=== PATIENT | female | born 1955 | race African-American/Black ===

== ENCOUNTER 2024-06-06 16:25 | Emergency (ER) | payer OTHER, SELFPAY ==
--- NOTE | ~2024-06-06 | XR_ITS ---
CLINICAL HISTORY: sob, flu + Chest X-ray, 1 View COMPARISON: None FINDINGS: No consolidation. No pleural effusion. No pneumothorax. No cardiomegaly. No acute fracture. IMPRESSION: No acute findings. This document has been electronically signed by: Karel Riggs MD on 06/06/2024 22:10:20
--- NOTE | ~2024-06-06 | CT_ITS ---
CLINICAL HISTORY: diffuse abd pain, worse RUQ, hx cholecystectomy CT Abdomen and Pelvis WO Contrast COMPARISON: None FINDINGS: Bilateral breast implants in place. Patchy infiltrates in the left lower lobe and the lingula. Diffusely hypodense liver consistent with hepatic steatosis. Normal spleen. Normal kidneys. Normal adrenal glands. Normal pancreas. No visible cholelithiasis. No biliary dilation. Air-fluid levels in nondistended small bowel. No mucosal thickening. No evidence of obstruction. Normal appendix. Mild diffuse bladder wall thickening. Status post hysterectomy. No ascites. No pneumoperitoneum. No lymphadenopathy. No acute fracture. Degenerative changes in the spine. No abdominal aortic aneurysm. IMPRESSION: Air-fluid levels in nondistended small bowel, which could be due to enteritis or dysmotility. Possible cystitis. Infiltrates in the left lower lobe and the lingula. Nonemergent/incidental findings above. This document has been electronically signed by: Karel Riggs MD on 06/06/2024 23:46:03
[2024-06-06 17:04] VITALS: BP 125/74; PULSE 118; RESP 20; TEMP 37.4; O2SAT 95; BMI 23.3
--- NOTE | 2024-06-06 17:05 | ED.GENADULT ---
HPI - General Adult General Chief complaint: Nausea/Vomiting/Diarrhea Stated complaint: vomiting, difficulty breathing, diarrhea Time Seen by Provider: 06/06/24 21:36 Source: patient Mode of arrival: ambulatory Limitations: no limitations History of Present Illness ED Provider: Dr. Mara Miller HPI narrative: Patient comes to the emergency room complaining of 4 days of nausea vomiting diarrhea and pain with breathing. Patient states that she is not significantly short of breath. Patient denies chest pain. Patient states that she has not taking any medication at home such as ibuprofen or acetaminophen because she has anaphylaxis to this medications. Patient reports 6 episodes a proximally of diarrhea and vomiting each day for the last 4 days. Patient also complaining of diffuse abdominal pain, seems to be worse on the right. Patient does have history of cholecystectomy. Related Data Previous Rx's ?Medication ?Instructions ?Recorded levofloxacin 500 mg tablet 500 mg PO DAILY #6 tabs 06/07/24 loperamide 2 mg capsule 2 mg PO Q4H PRN loose stool #14 06/07/24 (Anti-Diarrheal (loperamide)) caps Allergies Allergy/AdvReac Type Severity Reaction Status Date / Time acetaminophen [From Percocet] Allergy Unknown Verified 06/06/24 17:10 aspirin Allergy Unknown Verified 06/06/24 17:10 ibuprofen Allergy Unknown Verified 06/06/24 17:10 morphine Allergy Unknown Verified 06/06/24 17:10 naproxen Allergy Unknown Verified 06/06/24 17:10 oxycodone Allergy Unknown Verified 06/06/24 17:10 Penicillins Allergy Unknown Verified 06/06/24 17:10 Review of Systems Review of Systems: Constitutional : No Weight loss, No Fever, No Chills, No Night Sweats, No Fatigue, No Malaise ENT/Mouth : No Hearing loss, No Ear Pain, No Nasal Congestion, No Sinus Pain, No Hoarseness, No sore throat, No Rhinorrhea, No Swallowing Difficulty Eyes: No Eye Pain, No Swelling, No Redness, No Foreign Body, No Discharge, No Vision Changes Cardiovascular : No Chest Pain, No SOB, No Dyspnea on Exertion, No Orthopnea, No Edema, No Palpitations Respiratory : No Cough, No Sputum, No Wheezing, complaining of pain in both lungs with deep breaths, No Dyspnea Gastrointestinal : Complaining of nausea vomiting and diarrhea No Constipation, complaining of right upper quadrant pain Genitourinary : no irregular bleeding, No Dysuria, No Urinary Frequency, No Hematuria, No Urinary Incontinence, No Urgency, No Flank Pain, No Urinary Flow Changes, No Hesitancy Musculoskeletal : No joint pain, No Myalgias, No Joint Swelling Skin : No Skin Lesions, No rash Neuro : No Weakness, No Numbness, No Paresthesias, No Loss of Consciousness, No Dizziness, No Headache Psych : No Anxiety/Panic, No Depression, No SI/HI/AH/VH, No Social Issues, Heme/Lymph: No Bruising, No Bleeding,No Lymphadenopathy Endocrine : No Polyuria, No Polydipsia, No Temperature Intolerance [facility] Past Medical History Medical History (Updated 06/07/24 @ 01:03 by Mara Miller MD) Asthma Hypertension Breast cancer in female Surgical History (Updated 06/06/24 @ 21:52 by Mara Miller MD) Hx of cholecystectomy H/O: hysterectomy H/O bilateral mastectomy Social History Social History Alcohol intake: never Smoked in Last 30 Days: No Use of substances other than those prescribed or required for medical reasons: Yes Substance Use Type: Marijuana Substance Use Frequency: Occasionally Advance Directives: No Advance Directives Information Provided: No Do you have a plan to hurt others: No Plan Physical Exam ED Vital Signs: Vital Signs - 24 hr 06/06/24 17:04 06/07/24 00:27 Temperature 99.3 F 101.4 F H Pulse Rate 118 H 117 H Respiratory Rate 20 21 H Blood Pressure 125/74 130/91 H Pulse Oximetry 95 95 Oxygen Delivery Method Room Air Room Air BMI result Body Mass Index 23.3 Const Other: Appearance: Alert. Oriented X3. No acute distress. Eyes: Pupils equal, round and reactive to light. ENT: Pharynx normal. Dry oral mucosa Neck: Normal inspection. Neck supple. No lymph nodes noted. No crepitus CVS: Normal heart rate and rhythm. Pulses normal. Normal S1 and S2 Respiratory: No respiratory distress. Breath sounds normal. No Wheezing. No rales Abdomen: Soft, diffuse pain to palpation in all quadrants. No rigidity. No distention. Skin: Skin warm and dry. Normal skin color. Normal skin turgor. Extremities: No lower extremity edema. No Lacerations. No Rash Neuro: Oriented X 3. No motor deficit. No sensory deficit. Moving all extremities. No slurred speech. CN 2 through 12 grossly intact Psych: calm, cooperative, normal affect Course Course Course Narrative: This is a rapid medical exam performed by Eryn Quigley NP: Additional HPI, ROS, PE not included below will be deferred to primary provider. Patient is a 68-year-old female with history of HTN, asthma, osteoporosis, breast CA with double mastectomy presenting with complaint of nausea, vomiting, diarrhea and shortness of breath for the past 4 days. Right sided abdominal pain. Went to [facility] first and had labs, EKG, CXR done but left due to wait time. Plan: labs, viral serology Medications Administered Discontinued Medications Generic Name Dose Route Start Last Admin Trade Name Freq PRN Reason Stop Dose Admin Lactated Ringer's 2,000 mls @ 999 mls/hr 06/06/24 21:45 06/07/24 00:32 Lr IV 06/06/24 23:45 Infused .Q2H1M JUVENCIO Infusion Loperamide HCl 4 mg 06/06/24 21:45 06/06/24 22:07 Loperamide Hcl 2 Mg Capsule PO 06/06/24 21:46 4 mg ONCE ONE Administration Ondansetron HCl 4 mg 06/06/24 21:45 06/06/24 22:07 Ondansetron Hcl 4 Mg/2 Ml Vial IVPUSH 06/06/24 21:46 4 mg ONCE ONE Administration Medical Decision Making Medical Decision Making [facility] Narrative: My interpretation of labs: Patient's white blood cell count 9.2, normal chemistry, LFTs a bit elevated, no previous labs for comparison. Serology positive for influenza A. Patient complaining of pain with inspiration, likely pleurisy. Chest x-rays ordered to rule out pneumonia Patient complaining of diffuse abdominal pain, likely from vomiting diarrhea. However, LFTs a bit elevated, no previous labs for comparison, CT scan pending Patient receiving IV fluids, Zofran, loperamide CT scan abdomen shows air-fluid levels, nondistended, likely due to enteritis or dysmotility. Infiltrates in the left lower lobe and lingula. Chest x-ray no acute findings. Patient was given p.o. levofloxacin. Patient reports having anaphylaxis to acetaminophen and NSAIDs. Patient was given ice packs to help with the fever Patient is outside of the window of treatment with Tamiflu Patient has not had any hypotensive events, patient was ambulated, no oxygen desaturations. Patient has stable gait. Sepsis is not suspected. In the ED patient has not had any episodes of nausea vomiting or diarrhea. Patient's daughter feels comfortable taking the patient home. Differential Diagnosis Differential Diagnoses: The differential diagnosis associated with the presentation includes (Influenza, COVID, RSV, gastroenteritis, enteritis, viral illness) Admission/Observation Consideration of admission/observation: Escalation of care including admission/observation considered (Given patient's age and symptoms, observation was considered) Lab Data MDM Lab Attestation statement: I reviewed the patient's lab results. 06/06/24 17:30 06/06/24 17:30 Labs: Lab Results 06/06/24 06/06/24 Range/Units 17:30 20:48 WBC 9.2 (4.8-10.8) X10*3/uL RBC 4.91 (4.20-5.50) X10*6/uL Hgb 13.4 (12.0-16.0) g/dl Hct 39.9 (37.0-47.0) % MCV 81.3 (80.0-98.0) fL MCH 27.3 (27.0-33.0) pg MCHC 33.6 (31.0-35.0) g/dl RDW 12.9 (11.0-16.0) % Plt Count 270 (160-400) X10*3/uL MPV 10.3 (9.4-12.3) fL Immature Gran % (Auto) 0.5 H (0.0-0.4) % Neut % (Auto) 75.5 H (45-73) % Lymph % (Auto) 15.2 L (20-40) % [place] % (Auto) 8.6 (2-11) % Eos % (Auto) 0.0 (0-4) % Baso % (Auto) 0.2 (0-2) % Lymph # (Auto) 1.4 (1.2-4.9) X10*3/uL [place] # (Auto) 0.8 (0.1-1.2) X10*3/uL Eos # (Auto) 0.0 (0.0-0.4) X10*3/uL Baso # (Auto) 0.0 (0.0-0.2) X10*3/uL Abs Immat Gran (auto) 0.05 H (0.00-0.03) X10*3/uL Absolute Neuts (auto) 7.0 (2.0-8.3) x10*3/uL Absolute Nucleated RBC 0.000 (0.0-0.012) X10*3/uL Nucleated RBC % (auto) 0.0 (0.0-0.2) /100WBC PT 12.4 (10.9-12.4) SEC INR 1.1 (0.9-1.1) Sodium 138 (135-145) mmol/L Potassium 3.6 (3.3-5.1) mmol/L Chloride 104 (96-108) mmol/L Carbon Dioxide 23 (22-29) mmol/L Anion Gap 15 (12-20) BUN 14 (9-16) mg/dL Creatinine 1.33 (0.5-1.4) mg/dL Estim Creat Clear Calc 35.4 Estimated GFR 39 Random Glucose 137 H (60-115) mg/dL Calcium 8.6 (8.4-10.2) mg/dL Magnesium 1.8 (1.6-2.6) mg/dL Total Bilirubin 0.5 (0.0-1.0) mg/dL AST 97 H (5-31) U/L ALT 148 H (0-31) U/L Alkaline Phosphatase 219 H (39-117) U/L Total Protein 8.2 H (6.5-8.0) g/dL Albumin 4.1 (3.5-5.0) g/dL Lipase 34 (8-78) U/L Urine Color Yellow Urine Appearance Clear Urine pH 5.0 (5.0-9.0) Ur Specific [place] 1.015 (1.005-1.025) Urine Protein 30 (1+) H (Neg-Trace) mg/dL Urine Glucose (UA) Negative (Negative) mg/dL Urine Ketones 15 (Negative) mg/dL Urine Blood Small (1+) H (Negative) Urine Nitrite Negative (Negative) Ur Leukocyte Esterase Small (1+) H (Negative) Urine RBC 3-5 H (0-2) /HPF Urine WBC 0-5 (0-5) /HPF Ur Squamous Epith Cells 3-5 (0-2) /HPF Urine Bacteria None Seen (None Seen) Hyaline Casts 6-10 (0-2) /LPF Influenza Type A (PCR) POSITIVE A (Negative) Influenza Type B (PCR) NEGATIVE (Negative) RSV RNA Qual (PCR) NEGATIVE (Negative) SARS-CoV-2 RNA (RT-PCR) NEGATIVE (Negative) Independent Interpretation I performed an independent interpretation of an: Plain X-Ray and CT Scan Radiology Impression Discussion of test interpretation with radiology: I have reviewed the radiologist's reading. Radiologist Impression: Bilateral breast implants in place. Patchy infiltrates in the left lower lobe and the lingula. Diffusely hypodense liver consistent with hepatic steatosis. Normal spleen. Normal kidneys. Normal adrenal glands. Normal pancreas. No visible cholelithiasis. No biliary dilation. Air-fluid levels in nondistended small bowel. No mucosal thickening. No evidence of obstruction. Normal appendix. Mild diffuse bladder wall thickening. Status post hysterectomy. No ascites. No pneumoperitoneum. No lymphadenopathy. No acute fracture. Degenerative changes in the spine. No abdominal aortic aneurysm. IMPRESSION: Air-fluid levels in nondistended small bowel, which could be due to enteritis or dysmotility. Possible cystitis. Infiltrates in the left lower lobe and the lingula. Nonemergent/incidental findings above. Critical Care Time Critical Care Time Critical Care Time: Yes Total Critical Care Time: 45 Attestation: I have personally provided critical care time. Time includes review of lab data, radiology results, discussion with consultants, and monitoring for potential decompensation. Intervention performed as documented. Discharge Plan Discharge Clinical Impression: Influenza A, Diarrhea, Pneumonia Patient Disposition: Home, Self-Care Instructions: Influenza (DC), Acute Diarrhea (ED), Community Acquired Pneumonia (ED) Additional Instructions: Please follow-up with your primary care physician tomorrow. If you have any worsening or new symptoms, please return to the emergency room or call 911 Prescriptions: New loperamide [Anti-Diarrheal (loperamide)] 2 mg capsule 2 mg PO Q4H PRN (Reason: loose stool) Qty: 14 0RF Rx Instructions: administer after each loose stool until symptoms controlled; do not exceed 8 mg per 24 hrs levofloxacin 500 mg tablet 500 mg PO DAILY Qty: 6 0RF Print Language: Wolof
--- NOTE | 2024-06-06 17:19 | PC.NURSE ---
Pt. found laying on waiting room floor. This RN told pt. she cannot lay on waiting room floor. Pt. will not get up. Security called
[2024-06-06 17:42] LABS: MANUAL DIFF FLAG NO
[2024-06-06 17:44] LABS: Basophils Percent Auto 0.2 % (0-2); Hematocrit 39.9 % (37.0-47.0); Hemoglobin 13.4 g/dl (12.0-16.0); Imm Gran Abs Auto 0.05 X10*3/uL (0.00-0.03); Imm Gran Pct Auto 0.5 % (0.0-0.4); Lymphocytes Absolute Auto 1.4 X10*3/uL (1.2-4.9); Lymphocytes Percent Auto 15.2 % (20-40); Mean Corpuscular HGB Conc 33.6 g/dl (31.0-35.0); Mean Corpuscular Hemoglobin 27.3 pg (27.0-33.0); Mean Corpuscular Volume 81.3 fL (80.0-98.0); Mean Platelet Volume 10.3 fL (9.4-12.3); Monocytes Absolute Auto 0.8 X10*3/uL (0.1-1.2); Monocytes Percent Auto 8.6 % (2-11); Neutrophils Percent Auto 75.5 % (45-73); Platelet Count 270 X10*3/uL (160-400); Red Blood Count 4.91 X10*6/uL (4.20-5.50); Red Cell Distribution Width 12.9 % (11.0-16.0); White Blood Count 9.2 X10*3/uL (4.8-10.8)
[2024-06-06 17:53] LABS: INTERNATIONAL NORM RATIO 1.1 (0.9-1.1); Prothrombin Time 12.4 SEC (10.9-12.4)
[2024-06-06 17:57] LABS: Alanine Aminotransferase 148 U/L (0-31); Albumin Level 4.1 g/dL (3.5-5.0); Alkaline Phosphatase 219 U/L (39-117); Anion Gap 15 (12-20); Aspartate Amino Transferase 97 U/L (5-31); Bilirubin Total 0.5 mg/dL (0.0-1.0); Blood Urea Nitrogen 14 mg/dL (9-16); Calcium 8.6 mg/dL (8.4-10.2); Carbon Dioxide 23 mmol/L (22-29); Chloride 104 mmol/L (96-108); Creatinine Clr Calc Pharmacy 35.4; Estimated Glomerular Filt Rate 39; Glucose Random 137 mg/dL (60-115); Lipase 34 U/L (8-78); Magnesium 1.8 mg/dL (1.6-2.6); Potassium 3.6 mmol/L (3.3-5.1); Sodium 138 mmol/L (135-145); Total Protein 8.2 g/dL (6.5-8.0)
[2024-06-06 18:34] LABS: Influenza A PCR POSITIVE (Negative); Influenza B PCR NEGATIVE (Negative); Resp Syncy Virus RNA Qual PCR NEGATIVE (Negative); SARS COV2 PCR INHOUSE NEGATIVE (Negative)
[2024-06-06 20:56] LABS: Appearance Urine Clear; Color Urine Yellow; Glucose Urine UA Negative (Negative); Leukocyte Esterase Urine Small (1+) (Negative); Nitrite Urine Negative (Negative); Specific Gravity - Urine 1.015 (1.005-1.025); UMIC TRIGGER UACC YES; Urine Blood Small (1+) (Negative); Urine Ketones 15 mg/dL (Negative); Urine Protein 30 (1+) mg/dL (Neg-Trace)
[2024-06-06 21:07] LABS: Bacteria Urine None Seen (None Seen); UACC Culture Trigger YES; WBC Urine 0-5 /HPF (0-5)
[2024-06-06] MEDS: Loperamide HCl 2 MG CAPSULE 4 MG PO (22:07)
[2024-06-06] MEDS: ondansetron HCL 4 MG/2 ML VIAL IVPUSH (22:07)
[2024-06-06] MEDS: Lactated Ringers 2,000 ML 999 ML IV (22:10)
[2024-06-07 00:12] VITALS: O2SAT 94
[2024-06-07 00:27] VITALS: BP 130/91; PULSE 117; RESP 21; TEMP 38.6; O2SAT 95
[2024-06-07] MEDS: levoFLOXacin 500 MG TABLET PO (01:07)
--- NOTE | 2024-06-07 01:14 | PC.NURSE ---
Addendum entered by Glenna Faith 06/07/24 01:17: Pt with fever, Provider Yaniv Miller made aware. No new orders d/t patient allergies. Pt given ice packs and cool cloth. Original Note: Pt A&Ox3, ambulation trial performed. Pt SpO2 94% on RA, Pt slightly winded, able to ambulate with slow steady gait to BR.
[2024-06-07 01:15] VITALS: BP 130/91; PULSE 117; RESP 21; TEMP 38.6; O2SAT 95
== END 2024-06-07 01:18 | disposition home or self-care (01) ==
PROVIDERS: Registered Nurse Emergency; Emergency Provider Emergency Medicine
DX: J10.1 Influenza due to other identified influenza virus with other respiratory manifestations (principal); J18.9 Pneumonia, unspecified organism; R11.2 Nausea with vomiting, unspecified; R06.02 Shortness of breath; R10.2 Pelvic and perineal pain; R19.7 Diarrhea, unspecified; Z03.818 Encounter for observation for suspected exposure to other biological agents ruled out; Z79.899 Other long term (current) drug therapy
CPT/HCPCS: 0241U; 36415; 71045; 74176; 80053; 81001; 81003; 83690; 83735; 85025; 85610; 87086; 96361; 96374; 99284; J2405; J7120

== ENCOUNTER → 2024-06-06 21:39 | Outpatient (BNV) | payer OTHER, SELFPAY | PROVIDERS: Emergency Provider Emergency Medicine; Visit Provider Radiology Diagnostic Radiology | DX: R10.9 Unspecified abdominal pain (principal) | CPT/HCPCS: 71045; 74176 ==

== ENCOUNTER 2024-11-03 11:09 | Emergency (ER) | payer OTHER, SELFPAY ==
--- NOTE | 2024-11-03 | ECG_ITS ---
Test Reason : sob Blood Pressure : */* mmHG Vent. Rate : 81 BPM Atrial Rate : 81 BPM P-R Int : 144 ms QRS Dur : 92 ms QT Int : 390 ms P-R-T Axes : * 193 169 degrees QTcB Int : 453 ms Normal sinus rhythm Right superior axis deviation Incomplete right bundle branch block Nonspecific ST and T wave abnormality Abnormal ECG No previous ECGs available Referred By: Generic ED Physician Electronically Signed By: SUZI EVANS
--- NOTE | ~2024-11-03 | CT_ITS ---
EXAMINATION: CT HEAD WITHOUT CONTRAST CLINICAL INFORMATION: Headache. COMPARISON: None available. TECHNIQUE: Contiguous axial imaging was performed from the skull base to vertex without intravenous administration of contrast. This CT examination was performed using dose optimization techniques as appropriate, variously including the following: *Automated exposure control *Adjustment of mA and/or kV according to patient size (this includes techniques or standardized protocols for targeted exams where dose is matched to indication/reason for exam; i.e. extremities or head) *Use of iterative reconstruction technique FINDINGS: There is no evidence of intracranial hemorrhage or extra-axial fluid collection. There is no mass effect, or edema. No CT evidence of acute territorial infarct. Ventricles, sulci, and cisterns are normal in size and configuration for patient age. No hydrocephalus. No midline shift. Negative hyperdense MCA sign. Negative insular ribbon sign. No significant white matter abnormality. Normal pituitary. Globes and orbital contents image normally. No extracranial soft tissue abnormalities. The paranasal sinuses, mastoid air cells, and tympanic cavities are normally aerated. No suspicious bony abnormalities. There are no acute fractures evident. Moderate degenerative changes in the bilateral TM joints. CT/CT head/brain wo IV con IMPRESSION: No acute intracranial abnormality. Electronically signed by: Christiano Hodges MD 11/03/2024 04:42 PM EDT
--- NOTE | ~2024-11-03 | CT_ITS ---
EXAMINATION: CT ABDOMEN AND PELVIS WITHOUT CONTRAST CLINICAL INFORMATION: Right flank pain. COMPARISON: None available. TECHNIQUE: Multidetector volumetric imaging was performed from the superior aspect of the liver through the pubic symphysis. Sagittal and coronal reformatted images were obtained on the technologist's workstation. This CT examination was performed using dose optimization techniques as appropriate, variously including the following: *Automated exposure control *Adjustment of mA and/or kV according to patient size (this includes techniques or standardized protocols for targeted exams where dose is matched to indication/reason for exam; i.e. extremities or head) *Use of iterative reconstruction technique FINDINGS: LUNG BASES: Lung bases are clear. No effusions. Heart size is normal. Suspect a small type I hiatus hernia. Partially imaged left breast implant. LIVER, GALLBLADDER, AND BILIARY TREE: The unenhanced liver is normal in size, shape, and attenuation. No focal hepatic lesion or biliary ductal dilatation is present. The gallbladder is surgically absent. PANCREAS: Unremarkable. SPLEEN: Unremarkable. ADRENAL GLANDS: Unremarkable. KIDNEYS AND URETERS: The kidneys are normal in size, shape, and attenuation. No hydronephrosis, hydroureter, or calculi seen. No perinephric stranding. BLADDER: Completely decompressed. Mild wall thickening noted. GASTROINTESTINAL TRACT: Normal appendix. The stomach is decompressed. The duodenum appears normal. Small bowel is normal in caliber and course. The colon is normal in caliber and course without wall thickening or inflammation. The rectum is normal. ABDOMINAL WALL: No significant hernia is present. There is a left breast implant, partially imaged. LYMPH NODES: No abnormal lymphadenopathy. VASCULAR: Mild atheromatous calcification of the aorta and iliac arteries. There is no aneurysm. PELVIC VISCERA: There has been a hysterectomy. No adnexal masses.. OSSEOUS STRUCTURES: There is no suspicious lytic or blastic bone lesion. There are degenerative changes of the spine and mild changes in both hip joints. CT/CT abdomen pelvis wo IV con IMPRESSION: 1. No acute findings in the abdomen or pelvis. No urological calculus or obstruction. 2. Mild wall thickening of the urinary bladder despite decompression. Consider mild cystitis. 3. Ancillary findings as described. Electronically signed by: Christiano Hodges MD 11/03/2024 04:49 PM EDT
[2024-11-03 11:22] VITALS: BP 145/76; BP 160/74; PULSE 83; PULSE 85; RESP 18; TEMP 37.4; O2SAT 100; O2SAT 97; BMI 25.8
--- NOTE | 2024-11-03 12:25 | ED.GENADULT ---
HPI - General Adult General Chief complaint: Abdominal Pain Stated complaint: SOB Time Seen by Provider: 11/03/24 12:25 History of Present Illness ED Provider: Nash OSORIO narrative: The patient is a 68-year-old woman who presents complaining of pain that she feels primarily in her right flank. This radiates to her right lower quadrant and she says it also goes down her right leg. She has also had a headache, nausea and vomiting, a generalized sense of weakness and dizziness. Patient says that she normally goes to [facility] for emergency care but on this occasion she believes that the waiting time the [facility] Emergency Room was going to be very long. She came here by ambulance. She lives in [place]. no fever, sweats, chills. No cough or sputum. No chest pain. She has a history of a cholecystectomy and hysterectomy. Related Data Previous Rx's ?Medication ?Instructions ?Recorded levofloxacin 500 mg tablet 500 mg PO DAILY #6 tabs 06/07/24 loperamide 2 mg capsule 2 mg PO Q4H PRN loose stool #14 06/07/24 (Anti-Diarrheal (loperamide)) caps Allergies Allergy/AdvReac Type Severity Reaction Status Date / Time acetaminophen (From Percocet) Allergy Unknown Verified 06/06/24 17:10 aspirin Allergy Unknown Verified 06/06/24 17:10 ibuprofen Allergy Unknown Verified 06/06/24 17:10 Iodinated Contrast Media Allergy Unknown Verified 11/03/24 11:28 (Contrast Dye) morphine Allergy Unknown Verified 06/06/24 17:10 naproxen Allergy Unknown Verified 06/06/24 17:10 oxycodone Allergy Unknown Verified 06/06/24 17:10 Penicillins Allergy Unknown Verified 06/06/24 17:10 Review of Systems Review of Systems: Yes all other systems are reviewed and are negative [facility] Past Medical History Medical History (Updated 11/03/24 @ 17:04 by Kenton Cao MD) Asthma Hypertension Breast cancer in female Surgical History (Updated 06/06/24 @ 21:52 by Mara Miller MD) Hx of cholecystectomy H/O: hysterectomy H/O bilateral mastectomy Social History Social History Alcohol intake: never Substance Use Type: Marijuana Physical Exam ED Vital Signs: Vital Signs - 24 hr 11/03/24 11:22 11/03/24 12:52 11/03/24 15:41 Temperature 99.4 F 98.9 F 98.8 F Pulse Rate 85 73 89 Respiratory Rate 18 19 16 Blood Pressure 160/74 H 136/83 123/84 Pulse Oximetry 97 99 98 Oxygen Delivery Method Room Air Room Air Room Air 11/03/24 17:18 Temperature 98.8 F Pulse Rate 89 Respiratory Rate 16 Blood Pressure 123/84 Pulse Oximetry 98 Oxygen Delivery Method Room Air BMI result Body Mass Index 25.8 Const Other: The patient was awake and alert. She seemed extremely restless on the hospital stretcher and she indicated the restlessness was primarily from her right flank pain. HENMT Other: The face is symmetrical. Mucous membranes moist. Eyes Other: Pupils are round equal, conjunctivae are clear, extraocular movements intact Neck Neck: Yes normal visual inspection, Yes full ROM, Yes no lymphadenopathy, Yes no meningeal signs and Yes supple Resp Effort & Inspection: normal respiratory effort Auscultation: clear to auscultation bilaterally Cardio Rate: regular rate Rhythm: regular rhythm Heart sounds: S1 normal heart sound present, S2 normal heart sound present and Murmur heart sound present ( No murmur heard) GI Other: the patient seemed to have right-sided abdominal tenderness. Back/Spine/Pelvis Other: The patient seemed to have right-sided CVA percussion tenderness Skin General skin exam: no rashes or lesions noted Neuro Other: the patient was awake and alert. She seems very restless on the hospital stretcher and she attributed this the pain she was experiencing in her right flank. Her cranial nerves seemed intact. She does seem to move her extremities symmetrically and appropriately. She had a steady gait. She seemed neurologically intact. General: no meningeal signs Extrem Other: There is no calf swelling or tenderness. No asymmetry. No peripheral edema. Medications Administered Discontinued Medications Generic Name Dose Route Start Last Admin Trade Name Freq PRN Reason Stop Dose Admin Diphenhydramine HCl 12.5 mg 11/03/24 12:31 11/03/24 12:53 Diphenhydramine Hcl 50 Mg/Ml Vial IVPUSH 11/03/24 12:32 12.5 mg ONCE ONE Administration Droperidol 1.25 mg 11/03/24 12:31 11/03/24 12:53 Droperidol 5 Mg/2 Ml Vial IVPUSH 11/03/24 12:32 1.25 mg ONCE ONE Administration Hydromorphone HCl 1 mg 11/03/24 12:31 11/03/24 12:54 Hydromorphone Hcl 1 Mg/Ml Syringe IVPUSH 11/03/24 12:32 1 mg ONCE ONE Administration Protocol Sodium Chloride 1,000 mls @ 999 mls/hr 11/03/24 14:30 11/03/24 17:12 Ns IV 11/03/24 15:30 Infused .Q1H1M JUVENCIO Infusion Medical Decision Making Medical Decision Making [facility] Narrative: The patient is a 68-year-old female who presents to the hospital by ambulance complaining of severe right flank pain and also headache. Her right flank pain seems to be the more severe pain. Patient's vital signs showed mild hypertension initially. Otherwise unremarkable. Since the patient looks extremely restless and uncomfortable she was given 1 mg of IV hydromorphone, 1.25 mg of IV droperidol, and 12.5 mg of diphenhydramine. She had reported multiple allergies to other pain medications. The patient fell asleep after receiving the above medication. She was also given 1 L of IV fluids. She had a noncontrast CT of the abdomen and pelvis to evaluate for a possible kidney stone. There were no acute findings on the CT of the abdomen and pelvis. CT of the head was done to evaluate for her headache. That head CT is negative. Patient has a fully supple neck and a normal neurological exam. I do not think she requires further investigations regarding her headache. She has negative head CT. The noncontrast CT the abdomen and pelvis was done to evaluate the patient's apparent severe right flank pain. Patient had some blood in her urine. The CT showed no signs of kidney stone or other obvious acute process. The patient's left for a while after receiving her dose of hydromorphone, droperidol, and diphenhydramine. She seemed to feel much better. I explained that her workup in the emergency room was largely unremarkable and that I felt she could be discharged follow-up with regular doctor. She seemed comfortable with this plan and was discharged. Lab Data 11/03/24 13:27 11/03/24 13:27 Labs: Lab Results 11/03/24 11/03/24 Range/Units 13:27 15:10 WBC 6.4 (4.8-10.8) X10*3/uL RBC 4.54 (4.20-5.50) X10*6/uL Hgb 12.8 (12.0-16.0) g/dl Hct 36.0 L (37.0-47.0) % MCV 79.3 L (80.0-98.0) fL MCH 28.2 (27.0-33.0) pg MCHC 35.6 H (31.0-35.0) g/dl RDW 12.6 (11.0-16.0) % Plt Count 239 (160-400) X10*3/uL MPV 9.6 (9.4-12.3) fL Immature Gran % (Auto) 0.2 (0.0-0.4) % Neut % (Auto) 56.3 (45-73) % Lymph % (Auto) 33.9 (20-40) % [place] % (Auto) 9.4 (2-11) % Eos % (Auto) 0.0 (0-4) % Baso % (Auto) 0.2 (0-2) % Lymph # (Auto) 2.2 (1.2-4.9) X10*3/uL [place] # (Auto) 0.6 (0.1-1.2) X10*3/uL Eos # (Auto) 0.0 (0.0-0.4) X10*3/uL Baso # (Auto) 0.0 (0.0-0.2) X10*3/uL Abs Immat Gran (auto) 0.01 (0.00-0.03) X10*3/uL Absolute Neuts (auto) 3.6 (2.0-8.3) x10*3/uL Absolute Nucleated RBC 0.000 (0.0-0.012) X10*3/uL Nucleated RBC % (auto) 0.0 (0.0-0.2) /100WBC Smear Tech's Comments VERIFIED Sodium 137 (135-145) mmol/L Potassium 3.7 (3.3-5.1) mmol/L Chloride 105 (96-108) mmol/L Carbon Dioxide 22 (22-29) mmol/L Anion Gap 14 (12-20) BUN 14 (9-16) mg/dL Creatinine 0.93 (0.5-1.4) mg/dL Estim Creat Clear Calc 55.3 Estimated GFR 60 Random Glucose 93 (60-115) mg/dL Calcium 9.3 D (8.4-10.2) mg/dL Total Bilirubin 0.6 (0.0-1.0) mg/dL Direct Bilirubin 0.2 (0.0-0.5) mg/dL AST 37 H (5-31) U/L ALT 32 H (0-31) U/L Alkaline Phosphatase 140 H (39-117) U/L C-Reactive Protein 2.43 H (< or = 0.50) mg/dL Total Protein 7.1 (6.5-8.0) g/dL Albumin 4.0 (3.5-5.0) g/dL Lipase 52 (8-78) U/L Urine Color Yellow Urine Appearance Clear Urine pH 5.5 (5.0-9.0) Ur Specific [place] 1.015 (1.005-1.025) Urine Protein Negative (Neg-Trace) mg/dL Urine Glucose (UA) Negative (Negative) mg/dL Urine Ketones 15 (Negative) mg/dL Urine Blood Small (1+) H (Negative) Urine Nitrite Negative (Negative) Ur Leukocyte Esterase Negative (Negative) Urine RBC 0-2 (0-2) /HPF Urine WBC 0-5 (0-5) /HPF Ur Squamous Epith Cells 0-2 (0-2) /HPF Urine Bacteria None Seen (None Seen) Hyaline Casts 0-2 (0-2) /LPF Ethyl Alcohol < 10 mg/dL Discharge Plan Discharge Clinical Impression: Acute right flank pain, Headache Patient Disposition: Home, Self-Care Additional Instructions: Your testing in the emergency room today is very reassuring. Your blood testing, urine testing, the CAT scan of your head, and the CAT scan of your abdomen and pelvis, does not suggest any acutely dangerous process. Please rest and take it easy. Drink lot of fluids. Avoid activities which exacerbate your pain. Please contact your primary care doctor's office tomorrow for a follow up appointment. Return to the emergency room if significantly worse. Prescriptions: No Action loperamide [Anti-Diarrheal (loperamide)] 2 mg capsule 2 mg PO Q4H PRN (Reason: loose stool) Qty: 14 0RF Rx Instructions: administer after each loose stool until symptoms controlled; do not exceed 8 mg per 24 hrs levofloxacin 500 mg tablet 500 mg PO DAILY Qty: 6 0RF Referrals: Patricia Hutchinson MD [Physician, Medical] Interventions: ED Discharge Assessment Last Done: 11/03/24 17:18 Discharge Date/Time: 11/03/24 17:19 Print Language: Kyrgyz
[2024-11-03 12:52] VITALS: BP 136/83; PULSE 73; RESP 19; TEMP 37.2; O2SAT 99
[2024-11-03] MEDS: diphenhydrAMINE HCL 50 MG/ML VIAL 12.5 MG IVPUSH (12:53)
[2024-11-03] MEDS: droPERidol 5 MG/2 ML VIAL 1.25 MG IVPUSH (12:53)
[2024-11-03] MEDS: HYDROmorphone HCl 1 MG/ML SYRINGE IVPUSH (12:54)
[2024-11-03 13:33] LABS: Basophils Percent Auto 0.2 % (0-2); Hemoglobin 12.8 g/dl (12.0-16.0); Imm Gran Abs Auto 0.01 X10*3/uL (0.00-0.03); Imm Gran Pct Auto 0.2 % (0.0-0.4); Lymphocytes Absolute Auto 2.2 X10*3/uL (1.2-4.9); Lymphocytes Percent Auto 33.9 % (20-40); MANUAL DIFF FLAG SCAN; Mean Corpuscular HGB Conc 35.6 g/dl (31.0-35.0); Mean Corpuscular Hemoglobin 28.2 pg (27.0-33.0); Mean Corpuscular Volume 79.3 fL (80.0-98.0); Mean Platelet Volume 9.6 fL (9.4-12.3); Monocytes Absolute Auto 0.6 X10*3/uL (0.1-1.2); Monocytes Percent Auto 9.4 % (2-11); Neutrophils Absolute Auto 3.6 x10*3/uL (2.0-8.3); Neutrophils Percent Auto 56.3 % (45-73); Platelet Count 239 X10*3/uL (160-400); Red Blood Count 4.54 X10*6/uL (4.20-5.50); Red Cell Distribution Width 12.6 % (11.0-16.0); SCAN SMEAR FLAG 1; White Blood Count 6.4 X10*3/uL (4.8-10.8)
[2024-11-03 13:51] LABS: Alanine Aminotransferase 32 U/L (0-31); Alkaline Phosphatase 140 U/L (39-117); Anion Gap 14 (12-20); Aspartate Amino Transferase 37 U/L (5-31); Bilirubin Direct 0.2 mg/dL (0.0-0.5); Bilirubin Total 0.6 mg/dL (0.0-1.0); Blood Urea Nitrogen 14 mg/dL (9-16); C Reactive Protein 2.43 mg/dL (< or = 0.50); Calcium 9.3 mg/dL (8.4-10.2); Carbon Dioxide 22 mmol/L (22-29); Chloride 105 mmol/L (96-108); Creatinine Clr Calc Pharmacy 55.3; Estimated Glomerular Filt Rate 60; Ethanol < 10 mg/dL; Glucose Random 93 mg/dL (60-115); Lipase 52 U/L (8-78); Potassium 3.7 mmol/L (3.3-5.1); Sodium 137 mmol/L (135-145); Total Protein 7.1 g/dL (6.5-8.0)
[2024-11-03 14:01] LABS: SLIDE REVIEW VERIFIED
[2024-11-03] MEDS: 0.9 % Sodium Chloride 1,000 ML 999 ML IV (14:34)
[2024-11-03 15:19] LABS: Appearance Urine Clear; Color Urine Yellow; Glucose Urine UA Negative (Negative); Leukocyte Esterase Urine Negative (Negative); Nitrite Urine Negative (Negative); PH 5.5 (5.0-9.0); Specific Gravity - Urine 1.015 (1.005-1.025); UMIC TRIGGER UACC YES; Urine Blood Small (1+) (Negative); Urine Ketones 15 mg/dL (Negative); Urine Protein Negative (Neg-Trace)
[2024-11-03 15:29] LABS: Bacteria Urine None Seen (None Seen); Hyaline Casts Urine 0-2 /LPF (0-2); RBC Urine 0-2 /HPF (0-2); Squamous Epithelial Cell Urine 0-2 /HPF (0-2); WBC Urine 0-5 /HPF (0-5)
[2024-11-03 15:41] VITALS: BP 123/84; PULSE 89; RESP 16; TEMP 37.1; O2SAT 98
[2024-11-03 17:18] VITALS: BP 123/84; PULSE 89; RESP 16; TEMP 37.1; O2SAT 98
== END 2024-11-03 17:19 | disposition home or self-care (01) ==
PROVIDERS: Emergency Provider Emergency Medicine
DX: R10.2 Pelvic and perineal pain (principal); R51.9 Headache, unspecified; R06.02 Shortness of breath; I45.10 Unspecified right bundle-branch block; R10.31 Right lower quadrant pain; R42 Dizziness and giddiness; Z51.81 Encounter for therapeutic drug level monitoring; Z79.899 Other long term (current) drug therapy
CPT/HCPCS: 36415; 70450; 74176; 80048; 80076; 80307; 81001; 83690; 85025; 86140; 93005; 96361; 96374; 96375; 99285; J1171; J1200; J1790

== ENCOUNTER → 2024-11-03 12:52 | Outpatient (BNV) | payer OTHER, SELFPAY | PROVIDERS: Emergency Provider Emergency Medicine; Visit Provider Internal Medicine | DX: I45.10 Unspecified right bundle-branch block (principal) | CPT/HCPCS: 93010 ==

== ENCOUNTER → 2024-11-03 14:14 | Outpatient (BNV) | payer OTHER, SELFPAY | PROVIDERS: Emergency Provider Emergency Medicine; Visit Provider Radiology Diagnostic Radiology | DX: I70.8 Atherosclerosis of other arteries (principal); R51.9 Headache, unspecified | CPT/HCPCS: 70450; 74176 ==